=== PATIENT | male | born 1965 | race Caucasian/White ===

== ENCOUNTER 2016-07-09 10:58 | Emergency (ER) | payer OTHER ==
[~2016-07-09] VITALS: Ht 180.3 cm; Wt 83.5 kg
[2016-07-09 11:22] VITALS: BP_SYST 98
--- NOTE | 2016-07-09 12:06 | NUR ---
Patient to ER bed 03 to gown for evaluation. Side rails up.
--- NOTE | 2016-07-09 12:18 | NUR ---
ER at bedside examining patient.
--- NOTE | 2016-07-09 12:21 | NUR ---
approx 1/2inches lac between 4th and 5 th finger of right hand,cut by anther player's finger nail while was playing basketball.mimimal bleeding and stopped.
[2016-07-09] MEDS ORDERED: DIPH-TET-PERTUS Vaccine 0.5 ML VIAL (ADACEL) IM ONE (12:30)
[2016-07-09] MEDS ORDERED: LIDOCAINE 1% 10 MG/ML, 20 ML MDV IJ ONE (12:30)
[2016-07-09] MEDS ORDERED: BACITRACIN 1 GM OINT TP ONE (12:30)
[2016-07-09] MEDS ORDERED: IBUPROFEN 800 MG TABLET PO ONE (13:00)
--- NOTE | 2016-07-09 13:10 | NUR ---
dr puri at bedside for suture repair
--- NOTE | 2016-07-09 13:33 | NUR ---
Patient given written and verbal discharge instructions and verbalizes understanding. ER MD discussed with patient the results and treatment provided. Patient in stable condition. ID arm band removed. Rx oF MOTRIN AND AUGMENTIN given. Patient educated on pain management and to follow up with PMD. Pain Scale 0/10. Opportunity for questions provided and answered.
[2016-07-09 13:35] VITALS: BP_SYST 103
== END 2016-07-09 13:33 | disposition home or self-care (01) ==
LOC: SED 10:58
DX: S61.411A Laceration without foreign body of right hand, initial encounter (principal); W45.8XXA Other foreign body or object entering through skin, initial encounter; Y93.67 Activity, basketball; Y99.8 Other external cause status; Y92.89 Other specified places as the place of occurrence of the external cause
CPT/HCPCS: 12002; 90471; 90715; 99283; J2001

== ENCOUNTER 2017-06-03 15:33 | Emergency (ER) | payer OTHER ==
[~2017-06-03] VITALS: Ht 180.3 cm; Wt 81.6 kg
[2017-06-03 15:33] VITALS: BP_SYST 102
--- NOTE | 2017-06-03 15:33 | NUR ---
BROUGHT BACK TO BED #3 AND TRIAGED. REPORT GIVEN TO SHERI
--- NOTE | 2017-06-03 15:33 | NUR ---
Pt report received. Pt c/o bump to back x 2 days. Red swollen bump noted to Right scapula, skin intact, pin-point tracey dot noted to center. Pt c/o pain with touch and movement of shoulder.
[2017-06-03] MEDS ORDERED: SULFAMETHOXAZOLE/TRIMETHOPR DS 1 TABLET PO ONE (16:30)
[2017-06-03] MEDS ORDERED: CEPHALEXIN 500 MG CAPSULE PO ONE (16:30)
[2017-06-03] MEDS ORDERED: IBUPROFEN 800 MG TABLET PO ONE (16:30)
[2017-06-03] MEDS ORDERED: LIDOCAINE/EPI 2% 1:100000 20 ML VIAL INJ ONE (16:30)
--- NOTE | 2017-06-03 16:30 | NUR ---
Viri Tapia, [employer] at bedside to perform I&D.
--- NOTE | 2017-06-03 17:00 | NUR ---
Pt states that he feels much better after the procedure.
[2017-06-03 17:25] VITALS: BP_SYST 128
--- NOTE | 2017-06-03 17:25 | NUR ---
Patient given written and verbal discharge instructions and verbalizes understanding. ER MD discussed with patient the results and treatment provided. Patient in stable condition. ID arm band removed. Rx of Keflex, Bactrim, Motrin given. Patient educated on pain management and to follow up with PMD. Pain Scale 1/10. Opportunity for questions provided and answered. Medication side effect fact sheet provided.
== END 2017-06-03 17:25 | disposition home or self-care (01) ==
LOC: SED 15:33
DX: L02.212 Cutaneous abscess of back [any part, except buttock and flank] (principal); R03.0 Elevated blood-pressure reading, without diagnosis of hypertension; Z98.890 Other specified postprocedural states
CPT/HCPCS: 99284